=== PATIENT | male | born 2000 | race Caucasian/White ===

== ENCOUNTER 2020-12-21 18:36 | Emergency (ER) | payer OTHER ==
[2020-12-21 20:16] LABS: BASOPHIL 0.4 % (0-2); EOSINOPHIL 0 % (0-5); HCT 45.4 % (42.0-52.0); HGB 15.2 g/dl (13.2-18.0); LYMPHOCYTE 18.7 % (15-48); MCH 27.2 pg (25.0-31.0); MCHC 33.5 g/dL (32.0-36.0); MCV 81.2 fL (78.0-100.0); MONOCYTE 4.6 % (0-12); MPV 10.9 fL (6.0-9.5); NEUTROPHIL 75.7 % (41-80); NRBC 0; PLT 197 K/uL (150-400); RBC 5.59 M/uL (4.70-6.00); RDW 13.1 % (11.5-14.0); WBC 4.8 K/uL (4.0-10.5)
[2020-12-21 20:29] LABS: BUN/CREAT RATIO (CALC) 11.4 RATIO; CREATININE 0.79 mg/dL (0.67-1.17); POTASSIUM 3.3 mmol/L (3.5-5.1)
[2020-12-21] MEDS ORDERED: VENTOLIN HFA IN18 GM INH (22:05)
[2020-12-21] MEDS ORDERED: MEDROL 4MG DOSEP4 MG PO (22:05)
[2020-12-21] MEDS ORDERED: ZOFRAN4 M1 PO (22:06)
== END 2020-12-21 23:00 | disposition home or self-care (01) ==
LOC: FER 18:36
PROVIDERS: Nurse Practitioner Family
DX: U07.1 COVID-19 (principal); Z91.010 Allergy to peanuts; Z91.048 Other nonmedicinal substance allergy status; Z98.890 Other specified postprocedural states
CPT/HCPCS: 36415; 71045; 71275; 80048; 85025; 85379; 94640; J1100; J2405; J7030; Q9967